=== PATIENT | female | born 1985 | race Caucasian/White ===

== ENCOUNTER 2020-07-31 00:36 | Outpatient (CLI) | payer BC, SELFPAY ==
[2020-07-31 17:26] LABS: SARS-CoV-2 RNA PCR Negative
== END 2020-07-31 00:37 | disposition home or self-care (01) ==
LOC: ANHCOVIDDT 00:36
PROVIDERS: Visit Provider Internal Medicine Gastroenterology
DX: Z01.812 Encounter for preprocedural laboratory examination (principal); Z20.828 Contact with and (suspected) exposure to other viral communicable diseases
CPT/HCPCS: 87635; C9803; U0003

== ENCOUNTER 2020-08-02 00:34 | Day surgery (SDC) | payer BC, SELFPAY ==
[2020-07-25 13:05] VITALS: BMI 31.1
--- NOTE | 2020-08-01 13:01 | WPDANESEPPF ---
Anes - Initial Pre Proc Eval Procedure: Operation Date: 08/02/20 08:30 Proposed Procedures p Screening Colonoscopy - Tom Santos MD Date/Time: 08/01/20 13:01 Surgeon: Tom Santos MD Pre Op Diagnosis: Family Hx Of Colon CA Patient Data Age: 35 Gender: F Height: 1.65 m Weight: 85 kg Allergies Allergy/AdvReac Type Severity Reaction Status Date / Time No Known Allergies Allergy Verified 08/02/20 07:35 Home Medications Medication Instructions Recorded Confirmed Type No Home Medications 07/25/20 08/02/20 History Patient hx anesthesia problems: none Family hx anesthesia problems: none [facility] Social History Social History Smoking status: Never smoker Alcohol intake: current Alcohol use details: Social Substance use: never Substance use type: does not use Living arrangements: with family Anes - Eval Final PreProcedure Day of Procedure 08/01/20 13:01 Patient weight: obese Heart: regular rate and rhythm Lungs: clear to auscultation and normal air movement Airway: Mallampati scale class II Neurological: alert and oriented Last oral intake: >/= 8 hours ASA classification: II Emergent: no Anesthetic plan: proceed Anesthesia type and monitoring: general GIVS and standard monitoring Informed Consent: The patient's anesthetic plan and its attendant risks and benefits were discussed with the patient/family/POA. Questions were solicited and answers provided to the satisfaction of the patient/family/POA.
[2020-08-02 07:37] VITALS: BP 119/76; PULSE 85; RESP 16; TEMP 36.3; O2SAT 98; BMI 30.7
--- NOTE | 2020-08-02 07:46 | P.HP_ITS ---
History of Present Illness History of Present Illness Consent: Risks, benefits, and alternatives have been discussed and questions answered. Patient agrees to proceed with procedure. Chief complaint: Family Hx Of Colon CA Narrative: Lily Chang is a 35 year old W female referred for screening colonoscopy secondary to a family history of colon cancer in a paternal aunt diagnosed in her 30s and a paternal grandfather diagnosed in his 60s. Her father has refused endoscopy in the past and she is not sure he has history of polyps. Patient is asymptomatic. She did have a colonoscopy 6 years ago which was normal. [facility] Social History Social History Smoking status: Never smoker Alcohol intake: current Alcohol use details: Social Substance use: never Substance use type: does not use Living arrangements: with family Meds Home Medications and Allergies Home Medications Medication Instructions Recorded Confirmed Type No Home Medications 07/25/20 08/02/20 History Allergies Allergy/AdvReac Type Severity Reaction Status Date / Time No Known Allergies Allergy Verified 08/02/20 07:35 Vital Signs Vital Signs - 24 hr 08/02/20 07:37 Temperature 36.3 C L Pulse Rate 85 Respiratory Rate 16 Blood Pressure 119/76 Pulse Oximetry 98 Exam Const: Orientation/consciousness: patient oriented x3 Resp: Auscultation: clear to auscultation bilaterally Cardio: Rate: regular rate Rhythm: regular rhythm Heart sounds: no murmurs GI: GI Palp: Yes Soft to palpation, No Tenderness to palpation present (GI), Yes No hepatosplenomegaly present and No Palpable mass present Auscultation: normal bowel sounds Neuro: General: patient oriented x3 and no focal motor deficits Extrem: General: no pedal edema Assessment and Plan Additional Plan Screening colonoscopy secondary to family history of colon cancer
[2020-08-02] MEDS: LACTATED RINGERS 1,000 ML 150 ML IV CONT (07:50)
[2020-08-02 09:00] VITALS: BP 102/58; PULSE 77; RESP 14; O2SAT 100
[2020-08-02 09:10] VITALS: BP 104/66; PULSE 66; RESP 14; O2SAT 100
[2020-08-02 09:20] VITALS: BP 106/58; PULSE 66; RESP 16; O2SAT 100
== END 2020-08-02 09:33 | disposition home or self-care (01) ==
PROVIDERS: PCP Family Medicine; Visit Provider Internal Medicine Gastroenterology
PROC: 0DJD8ZZ Inspection of Lower Intestinal Tract, Via Natural or Artificial Opening Endoscopic (ICD-10-PCS; CPT 45378; principal; 2020-08-02 08:30)
DX: Z12.11 Encounter for screening for malignant neoplasm of colon (principal); K63.5 Polyp of colon; Z80.0 Family history of malignant neoplasm of digestive organs; E66.9 Obesity, unspecified; Z68.30 Body mass index [BMI] 30.0-30.9, adult
CPT/HCPCS: 45385; 88305; J2704; J7120

== ENCOUNTER 2021-06-28 15:19 | Emergency (ER) | payer BC, SELFPAY ==
--- NOTE | 2021-06-28 15:20 | ED.SKABFB ---
HPI - Skin/Abscess/Foreign Bdy General Chief complaint: Skin/Abscess/Foreign Body Stated complaint: pos spider bite Time Seen by Provider: 06/28/21 15:20 Source: patient and RN notes reviewed History of Present Illness HPI narrative: Patient is a 36-year-old female who presents the urgent care with complaints of a spider bite to the left ankle. Patient states that she noticed it on Thursday. States that she did not see the spider bite her and is unaware of what insect it could have been. Patient states that she has been putting Benadryl cream to the area. States that it is slightly itchy at times but denies of any pain. Denies any fever, nausea, vomiting, lethargy, fatigue. Patient states that her and coworkers were telling her it was infected . No other acute complaints. No acute distress noted. Patient aware of the plan of care. Some parts of this dictation were generated by voice recognition software and may contain typographical and/or grammatical inaccuracies. Related Data Allergies Allergy/AdvReac Type Severity Reaction Status Date / Time No Known Allergies Allergy Verified 06/28/21 15:24 Review of Systems Review of Systems: CONSTITUTIONAL: Denies fever, chills, or sweats. EYES: Denies visual changes, redness, or discharge. ENT: Denies rhinorrhea, congestion, sore throat, or otalgia. CARDIOVASCULAR: Denies chest pain, palpitations, or edema. RESPIRATORY: Denies cough or dyspnea. GASTROINTESTINAL: Denies abdominal pain, nausea, vomiting, or diarrhea. GENITOURINARY: Denies dysuria or hematuria. SKIN: Reports of an insect bite to the left ankle MUSCULOSKELETAL: Denies back pain, joint pain, or myalgia. NEUROLOGIC: Denies headache, numbness, or weakness. All other systems reviewed are negative, except as documented in HPI. [facility] Past Medical History Medical History (Updated 06/28/21 @ 15:43 by TYLER Mcdonald) Abnormal colonoscopy 08.02.20: polyps. repeat in 5 years Social History Social History Smoking status: Never smoker Alcohol intake: current Alcohol use details: Social Substance use: never Substance use type: does not use Comments At the time of my signature, I reviewed and agree with the nursing past medical, surgical, social, and family history. There is no relevant family history pertinent to the patient complaint. Exam Narrative: GENERAL: This is a well-nourished, well-developed patient, in no apparent distress. HEAD: normocephalic, atraumatic. EYES: PERRL. Sclera clear/white. Vision is grossly intact. EARS: External ears normal NOSE: External nose normal with no obvious nasal discharge, nares without redness, no rhinorrhea. THROAT: Mucous membranes moist NECK: Neck supple CARDIOVASCULAR: Regular rate and rhythm without murmurs, gallops, or rubs. RESPIRATORY: Clear to auscultation. Breath sounds equal bilaterally. No wheezes, rales, or rhonchi. SKIN: 1 x 1 cm circular insect bite noted to the lateral aspect of the left malleolus without any signs or symptoms of cellulitis NEURO: awake, alert, and oriented to person, place and time. There were no obvious focal neurologic abnormalities. EXTREMITIES: No clubbing, cyanosis, or edema. Course Vital Signs Vital signs: Vital Signs Temperature 98.5 F 06/28/21 15:30 Pulse Rate 86 06/28/21 15:30 Respiratory Rate 16 06/28/21 15:30 Blood Pressure 127/80 06/28/21 15:30 Pulse Oximetry 100 06/28/21 15:30 Temperature 98.5 F 06/28/21 15:32 Pulse Rate 86 06/28/21 15:32 Respiratory Rate 16 06/28/21 15:32 Blood Pressure 127/80 06/28/21 15:32 Pulse Oximetry 100 06/28/21 15:32 Reviewed MDM - Skin/Abscess/Foreign Bdy MDM Narrative Medical decision making narrative: Advised the patient that she may continue an [id number]-[id number] antihistamine such as Benadryl/Claritin or Zyrtec as needed for itching. May continue Benadryl spray/cream as need
[2021-06-28 15:30] VITALS: BP 127/80; PULSE 86; RESP 16; TEMP 36.9; O2SAT 100
[2021-06-28 15:32] VITALS: BP 127/80; PULSE 86; RESP 16; TEMP 36.9; O2SAT 100
== END 2021-06-28 15:52 | disposition home or self-care (01) ==
PROVIDERS: Emergency Provider Nurse Practitioner Family; PCP Family Medicine
DX: S90.562A Insect bite (nonvenomous), left ankle, initial encounter (principal); W57.XXXA Bitten or stung by nonvenomous insect and other nonvenomous arthropods, initial encounter
CPT/HCPCS: 99213; G0463

== ENCOUNTER 2022-03-14 06:53 | Outpatient (CLI) | payer BC, SELFPAY ==
[2022-03-14 07:34] LABS: Basophils Percent Auto 0.7 % (0.2-1.2); Eosinophils Absolute Auto 0.1 K/mm3 (0-0.3); Eosinophils Percent Auto 2.4 % (0-4.4); Hematocrit 39.9 % (37.0-47.0); Hemoglobin 13.5 g/dL (12.0-15.0); Immature Granulocyte Absolute 0.02 K/mm3 (0.00-0.031); Immature Granulocyte Percent A 0.3 % (0-0.5); Lymphocytes Absolute Auto 1.52 K/mm3 (0.9-3.2); Lymphocytes Percent Auto 25.7 % (18.3-44.2); Mean Corpuscular HGB Conc 33.8 g/dl (32-36); Mean Corpuscular Hemoglobin 30.7 pg (26-34); Mean Corpuscular Volume 90.7 fl (80-100); Mean Platelet Volume 10.4 fl (7.4-10.4); Monocytes Absolute Auto 0.3 K/mm3 (0.1-0.6); Monocytes Percent Auto 5.6 % (2.6-8.5); Neutrophils Absolute Auto 3.9 K/mm3 (1.3-6.7); Neutrophils Percent Auto 65.3 % (45.5-73.1); Platelet Count Result 244 k/mm3 (150-375); Red Cell Distribution Width 12.7 % (11.5-14.5); White Blood Count 5.9 K/mm3 (4.5-10.0)
[2022-03-14 08:18] LABS: Free T4 Free Thyroxine 1.01 ng/mL (0.78-2.19)
[2022-03-21 00:11] LABS: Estradiol, Ultrasensitive 404 pg/mL
[2022-03-23 07:44] LABS: FSH <0.7 mIU/mL (***); Prolactin 11.8 ng/mL (***)
== END 2022-03-14 06:54 | disposition home or self-care (01) ==
LOC: ANHLAB 06:55
PROVIDERS: PCP Family Medicine; Visit Provider Obstetrics & Gynecology
DX: N93.9 Abnormal uterine and vaginal bleeding, unspecified (principal)
CPT/HCPCS: 36415; 82670; 83001; 84146; 84439; 84443; 84702; 85025

== ENCOUNTER 2022-03-21 06:46 | Outpatient (CLI) | payer BC, SELFPAY | END 2022-03-21 06:47 | disposition home or self-care (01) | LOC: ANHLAB 06:48 | PROVIDERS: PCP Family Medicine; Visit Provider Obstetrics & Gynecology | DX: N92.6 Irregular menstruation, unspecified (principal) | CPT/HCPCS: 36415; 84702 ==

== ENCOUNTER 2022-04-11 11:45 | Outpatient (CLI) | payer BC, SELFPAY ==
--- NOTE | ~2022-04-11 | MMUS_ITS ---
EXAMINATION: MM diagnostic trisha RT w abel, US breast RT limited HISTORY: 6:00 skin lesion TECHNIQUE: ML and MLO and CC 3-D tomosynthesis images of the right breast were performed and syntheti c 2-D images were generated. CAD analysis was submitted and interpreted. High resolution targeted rig ht breast ultrasound at 6:00 was performed. COMPARISON: None BREAST PARENCHYMAL COMPOSITION: The breasts are heterogeneously dense, which may obscure small masses . FINDINGS: MAMMOGRAPHIC FINDINGS: No suspicious mass or architectural distortion, malignant calcification, skin thickening or retractio n is detected. There is no evidence of underlying mammographic abnormal finding at the area of clinical complaint at 6:00 skin lesion. ULTRASOUND: There is a subcutaneous parallel circumscribed hypoechoic area measuring up to 5.5 x 6.4 mm dimension at the area of clinical complaint at 6:00 near the areola. The lesion is entirely within the subcuta neous tissues, not involving fibroglandular breast tissue. No significant underlying breast sonographic abnormality is noted IMPRESSION: 1. 6:00 approximately 5.5 x 6.4 mm subcutaneous skin lesion, not involving fibroglandular breast tiss ue; no underlying mammographic or sonographic abnormality 2. Consider skin punch biopsy. BI-RADS Category 2: Benign finding(s). Reviewed, dictated and finalized at location A. IMPRESSION: 1. 6:00 approximately 5.5 x 6.4 mm subcutaneous skin lesion, not involving fibr oglandular breast tissue; no underlying mammographic or sonographic abnormality 2. Consider skin punch biopsy. BI-RADS Category 2: Benign finding(s).
== END 2022-04-11 11:46 | disposition home or self-care (01) ==
PROVIDERS: PCP Family Medicine; Visit Provider Surgery
DX: N64.9 Disorder of breast, unspecified (principal)
CPT/HCPCS: 76642; 77061; 77065; G0279

== ENCOUNTER 2022-04-11 13:54 | Outpatient (CLI) | payer BC, SELFPAY ==
--- NOTE | ~2022-04-11 | US_ITS ---
EXAMINATION: US OB <=14 wk fetus w TV DATE: 04/11/2022 16:48 INDICATION: Gestational dating. TECHNIQUE: Real-time transabdominal obstetric ultrasound. FINDINGS: No prior studies for comparison. The uterus measures 12.8 x 8.1 x 6.8 cm. There is an intrauterine gestational sac, with pole id entified. The crown rump length measures 2.96 cm, which correlates with a estimated gestational age of 9 weeks 6 days. heart tones are identified measuring 171 BPM right ovary is unremarkable. Left ovary is not visualized.. IMPRESSION: 1. SL IUP with an EGA of 9 weeks, 6 days (EDC by current ultrasound of 11/08/2022). Reviewed, dictated and finalized at location A. IMPRESSION: 1. SL IUP with an EGA of 9 weeks, 6 days (EDC by current ultrasound of 11/08/20 22).
== END 2022-04-11 13:55 | disposition home or self-care (01) ==
PROVIDERS: PCP Family Medicine; Visit Provider Obstetrics & Gynecology
DX: Z36.87 Encounter for antenatal screening for uncertain dates (principal); Z3A.09 9 weeks gestation of pregnancy
CPT/HCPCS: 76801; 76817

== ENCOUNTER 2022-11-06 06:05 | Inpatient (IN) | payer BC, SELFPAY ==
[2022-11-06] VITALS (70 sets, daily range): BP systolic 77–202; BP diastolic 50–166; PULSE 67–277; RESP 18; TEMP 36.2–36.7; O2SAT 98–100; BMI 31.4
[2022-11-06 06:47] LABS: Basophils Percent Auto 0.5 % (0.2-1.2); Eosinophils Absolute Auto 0.1 K/mm3 (0-0.3); Hematocrit 33.9 % (37.0-47.0); Hemoglobin 11.5 g/dL (12.0-15.0); Immature Granulocyte Absolute 0.03 K/mm3 (0.00-0.031); Immature Granulocyte Percent A 0.5 % (0-0.5); Lymphocytes Absolute Auto 1.23 K/mm3 (0.9-3.2); Lymphocytes Percent Auto 19.9 % (18.3-44.2); Mean Corpuscular HGB Conc 33.9 g/dl (32-36); Mean Corpuscular Hemoglobin 31.5 pg (26-34); Mean Corpuscular Volume 92.9 fl (80-100); Mean Platelet Volume 10.7 fl (7.4-10.4); Monocytes Absolute Auto 0.4 K/mm3 (0.1-0.6); Monocytes Percent Auto 5.7 % (2.6-8.5); Neutrophils Absolute Auto 4.5 K/mm3 (1.3-6.7); Neutrophils Percent Auto 72.4 % (45.5-73.1); Platelet Count Result 197 k/mm3 (150-375); Red Blood Count 3.65 M/mm3 (4.2-5.4); Red Cell Distribution Width 13.5 % (11.5-14.5); White Blood Count 6.2 K/mm3 (4.5-10.0)
[2022-11-06] MEDS: AMPICILLIN 2 GM/NS 100 ML 2 GM/100 ML BAG IVPB (06:54)
[2022-11-06] MEDS: LACTATED RINGERS 1,000 ML 125 ML IV CONT (06:55)
--- NOTE | 2022-11-06 07:08 | LDADM ---
This patient, Lily Chang, was admitted to Labor/Delivery/Recovery 103 on 11/06/22 at 06:05. Plans for labor, pain management and were discussed with patient. Patient/family oriented to hospital policies and general routines including ID bracelet, bed and alarms, visiting hours, pain management, procedures, bathroom and other care routines, personal items, smoking policy, room service/diet and guest tray routines, security routines, and visiting hours. Patient/Family are encouraged to report perceived risks to care and to ask questions if they do not understand what they are told or what they should do. See OBIX for further documentation.
[2022-11-06 07:41] LABS: HIV 1/2 Ab P24 Ag Result Negative (Negative)
[2022-11-06] MEDS: OXYTOCIN 30 UNITS/NS 500 ML 30 UNITS/500 ML BAG IV CONT (08:19)
[2022-11-06] MEDS: LACTATED RINGERS 1,000 ML 999 ML IV CONT (09:34)
--- NOTE | 2022-11-06 10:00 | WPDHPUPDATE1 ---
History and Physical Update Update Date/Time: 11/06/22 10:00 History and Physical has been reviewed, including an updated exam of the patient. There are NO changes in the patient's condition. Risks, benefits, and alternatives have been discussed and questions answered. Patient agrees to proceed with procedure.
--- NOTE | 2022-11-06 10:00 | WPDANESEPP ---
Anes - Eval Pre Procedure Procedure: Labor Epidural Date/Time: 11/06/22 10:00 Surgeon: Dr. Lang Preop Diagnosis: Pain during labor Pre Op Diagnosis: IOL Patient Data Age: 37 Gender: F Height: 1.65 m Weight: 85.5 kg Last Vital Signs Temp 36.6 C 11/06/22 07:00 Pulse 84 11/06/22 09:45 BP 130/71 11/06/22 09:45 Allergies Allergy/AdvReac Type Severity Reaction Status Date / Time No Known Allergies Allergy Verified 10/30/22 10:45 Home Medications Medication Instructions Recorded Confirmed Type prenat.vits,gisselle,oln-fypk-xsfbg 1 tablet PO DAILY 03/24/22 11/06/22 History aspirin 81 mg tablet,delayed 81 mg PO DAILY #90 tabs 05/07/22 11/06/22 Rx release (Adult Aspirin Regimen) Laboratory Tests 11/06/22 11/06/22 11/06/22 06:39 06:39 06:39 WBC 6.2 K/mm3 K/mm3 (4.5-10.0) RBC 3.65 M/mm3 L M/mm3 (4.2-5.4) Hgb 11.5 g/dL L g/dL (12.0-15.0) Hct 33.9 % L % (37.0-47.0) MCV 92.9 fl fl (80-100) MCH 31.5 pg pg (26-34) MCHC 33.9 g/dl g/dl (32-36) RDW 13.5 % % (11.5-14.5) Plt Count 197 k/mm3 k/mm3 (150-375) MPV 10.7 fl H fl (7.4-10.4) Immature Gran % (Auto) 0.5 % % (0-0.5) Neut % (Auto) 72.4 % % (45.5-73.1) Lymph % (Auto) 19.9 % % (18.3-44.2) [place] % (Auto) 5.7 % % (2.6-8.5) Eos % (Auto) 1.0 % % (0-4.4) Baso % (Auto) 0.5 % % (0.2-1.2) Lymph # (Auto) 1.23 K/mm3 K/mm3 (0.9-3.2) [place] # (Auto) 0.4 K/mm3 K/mm3 (0.1-0.6) Eos # (Auto) 0.1 K/mm3 K/mm3 (0-0.3) Baso # (Auto) 0.0 K/mm3 K/mm3 (0.0-0.1) Abs Immat Gran (auto) 0.03 K/mm3 K/mm3 (0.00-0.031) Absolute Neuts (auto) 4.5 K/mm3 K/mm3 (1.3-6.7) Absolute Nucleated RBC 0.0 K/mm3 K/mm3 (0.0-0.012) Nucleated RBC % 0.0 % % (0.0-0.2) RPR Pending HIV 1&2 Ab/P24 Ag 4thGn Negative (Negative) Blood Type Antibody Screen 11/06/22 06:39 WBC RBC Hgb Hct MCV MCH MCHC RDW Plt Count MPV Immature Gran % (Auto) Neut % (Auto) Lymph % (Auto) [place] % (Auto) Eos % (Auto) Baso % (Auto) Lymph # (Auto) [place] # (Auto) Eos # (Auto) Baso # (Auto) Abs Immat Gran (auto) Absolute Neuts (auto) Absolute Nucleated RBC Nucleated RBC % RPR HIV 1&2 Ab/P24 Ag 4thGn Blood Type A Positive Antibody Screen Negative Patient hx anesthesia problems: none Family hx anesthesia problems: none Results Review: All pre-operative results and documents have been reviewed as part of the pre-operative evaluation. [facility] Past Medical History Medical History Abnormal colonoscopy 9.17.20: polyps. repeat in 5 years Blood glucose abnormal Family History Family History Father Hypertension Mother Hypertension Hypothyroidism Grandparent Hypertension Grandparent Diabetes mellitus Grandparent Cancer Social History Social History Smoking status: Never smoker Second hand tobacco smoke exposure: No Alcohol intake: never Alcohol use details: Social Substance use: never Substance use type: does not use Lack of Transportation: No Lack of Food: Never True Current Housing: I Have Housing Concerned About Future Housing: No Difficulty Paying Gas/Electric Bills: No Difficulty Paying for Meds: No Currently Unemployed: No Education: Bachelor's Degree Difficulty w/ Childcare or Family Care: No Additional occupation/education comments: swimming coach at [employer] concerns: N
--- NOTE | 2022-11-06 10:00 | WPDOBADMIT ---
Obstetrics - Admit Note Admission Note: record reviewed. No pertinent additions to the history and/or any subsequent changes in the physical findings that are not consistent with the expected course of the were found. Additions to the history and/or subsequent changes in the physical findings follow. None.
[2022-11-06] MEDS: AMPICILLIN 1 GM/NS 50 ML 1 GM/50 ML BAG IVPB (11:07)
--- NOTE | 2022-11-06 11:54 | P.PCNOB_ITS ---
OB - Delivery Note Procedure Events: Other (AMA) Induction method: AROM and Per Pitocin Protocol Delivery monitor: External FHT and External Uterine Route of delivery: Episiotomy description: None Laceration Description: None Specimen: No Quantitative Blood Loss (ml): 200 Anesthesia type: Epidural Disposition: Floor Complications: None Narrative: patient was prepped and draped usual manner this procedure. Maternal expulsive efforts readily delivered vertex with nuchal cord noted. With continued pushing rest baby was delivered without difficulty. The cord was clamped and cut and the placenta delivered spontaneously. Cervix vagina and vulva were inspected with no significant lacerations tears or bleeding. Uterus was well contracted. At this point the procedure was considered terminated with immediate postoperative condition of mother and baby both excellent. [place] Baby Weeks of gestation at delivery: 39 Infant gender: Male Weight (pounds): 7 Weight (ounces): 5 presentation: vertex Placenta delivery description: Spontaneous Cord Vessel Description: 3 Vessels and Nuchal Cord score one minute: 8 score five minutes: 8 AMG Delivery Billing Delivery Delivery: Delivery Charge
[2022-11-06] MEDS: OXYTOCIN 30 UNITS/NS 500 ML 30 UNITS/500 ML BAG 125 UNITS IV CONT (12:56)
--- NOTE | 2022-11-06 15:03 | PC.NURSE ---
Patient transferred to post room #279 via wheelchair. Support person present. Oriented to unit, room, information board, rooming in, admission packet and security measures. Patient verbalizes understanding.
[2022-11-07 00:45] VITALS: BP 130/87; PULSE 79; RESP 18; TEMP 36.9
[2022-11-07 04:45] VITALS: BP 115/61; PULSE 77; RESP 18; TEMP 37
[2022-11-07] MEDS: IBUPROFEN 600 MG TABLET PO ×2 (04:45→14:37)
[2022-11-07 05:30] LABS: Hematocrit 36.2 % (37.0-47.0); Hemoglobin 12.3 g/dL (12.0-15.0)
--- NOTE | 2022-11-07 07:28 | WPDANLDPN2 ---
Anes-Prog Note L&D Date/Time: 11/07/22 07:28 Neuro status: Neuro function grossly intact. Vital Signs: Last Vital Signs Temp 37.0 C 11/07/22 04:45 Pulse 77 11/07/22 04:45 Resp 18 11/07/22 04:45 BP 115/61 11/07/22 04:45 Pulse Ox 100 11/06/22 15:05 O2 Del Method Room Air 11/06/22 15:20 Pain score (VAS): 0 I/O: Intake & Output 11/06/22 11/06/22 11/07/22 15:59 23:59 07:59 Intake Total 2350 240 Output Total 1000 Balance 1350 240 Patient feedback: Patient satisfied with anesthetic care.
[2022-11-07 07:45] VITALS: BP 115/74; PULSE 85; RESP 18; TEMP 37; O2SAT 98
--- NOTE | 2022-11-07 08:22 | PM.OBDSVD ---
DS: Admitting Diagnosis Discharge Date 11/07/2022 Admitting Diagnosis OB - DS: Summary OB Procedures : None OB Procedures Intrapartum: Spontaneous Vag Delivery OB Procedures: : None Time Spent with Patient Time attestation: Total time spent providing and/or coordinating discharge services: DS: Data Data Completed and Pending Labs on day of discharge: Labs from last 24 hours 11/07/22 04:42 Hgb 12.3 Hct 36.2 L Discharge Plan Discharge Discharging Clinician: Aguila Garcia Patient Disposition: Home, Self-Care Activity: as tolerated Diet: as tolerated Patient Instructions: Antibiotic Form Stand Alone Forms: General Discharge Information Follow-up/Referrals: Mercedes Lang MD [Physician] - 3 Weeks Discharge Medications: New ibuprofen 600 mg Tablet 600 mg PO Q6H PRN (Reason: Cramping) Qty: 30 0RF Continued prenat.vits,gisselle,qpf-kgwl-svnra Tablet 1 tablet PO DAILY Discontinued aspirin [Adult Aspirin Regimen] 81 mg tablet,delayed release (DR/EC) 81 mg PO DAILY Qty: 90 3RF Date of admission: 11/06/22 06:05 Primary Care Provider: Trinidad,Kristen Wisdom Admitting Provider: Mercedes Lang Attending physician on admission: Mercedes Lagn Condition: Stable
[2022-11-07] MEDS: DOCUSATE SODIUM 100 MG CAPSULE PO (09:00)
[2022-11-07] MEDS: MULTIVIT/MIN/PREN/FOL AC/IRON TABLET 1 TAB PO (12:27)
[2022-11-07 14:45] LABS: Rapid Plasma Reagin Non-Reactive (NonReactive)
[2022-11-07 20:20] VITALS: BP 130/65; PULSE 78; RESP 18; TEMP 36.7
[2022-11-08 09:10] VITALS: BP 129/71; PULSE 87; RESP 18; TEMP 36.9
[2022-11-08] MEDS: IBUPROFEN 600 MG TABLET PO (09:24)
[2022-11-08] MEDS: MULTIVIT/MIN/PREN/FOL AC/IRON TABLET 1 TAB PO (09:24)
[2022-11-10 07:45] VITALS: BP 117/72; PULSE 93; RESP 20; TEMP 36.9; O2SAT 98
== END 2022-11-08 12:15 | disposition home or self-care (01) | DRG 807 ==
LOC: ANHOB2 11-08 08:56 → ANHLDR 11-11 10:03 → ANHOB2 11-11 10:03
PROVIDERS: Admitting Provider Obstetrics & Gynecology; PCP Family Medicine; Visit Provider Obstetrics & Gynecology
DX: O69.81X0 Labor and delivery complicated by cord around neck, without compression, not applicable or unspecified (principal); Z37.0 Single live birth; O99.824 Streptococcus B carrier state complicating childbirth; O76 Abnormality in fetal heart rate and rhythm complicating labor and delivery; Z3A.39 39 weeks gestation of pregnancy
CPT/HCPCS: 36415; 85014; 85018; 85025; 86592; 86703; 86850; 86900; 86901; A9270; G0432; J0290; J2590; J2795; J7120

== ENCOUNTER 2022-11-18 10:58 | Outpatient (RCR) | payer SELFPAY ==
--- NOTE | 2022-11-18 15:56 | PC.NURSE ---
In- 8 Out- 1247 Mother wanted to work on alone in the room to see if relaxing would bring in more milk as she states her milk is dripping at home . Mother was given a snack and encouragement to practice the techniques and tips of latching her effectively. From [id number] mother worked on her own and the plan was to weigh her again after the breastfeed. At this point we had also discussed the lack of good transfer of milk from mom to infant. Reason for visit: Latch issues History: Mother delivered a male baby 11/06. She has a history of a lumpectomy to her right breast at the 6 o'clock position. She was treated for GBS positive status twice during her labor that was 4 hrs and 58 minutes from start to delivery with no difficulties charted. History: Infant was delivered vaginally with apgars of 8/8, terminal meconium, forking tongue (11/13 frenulectomy was performed in the office), nuchal cord X1 and supplemented in the hospital with formula bottle related to low blood sugar results. Observations: Mother works well with her infant. Infant opens his mouth wide and quickly reduces mouth opening and draws his tongue up when he feels mothers nipple. Mother's body language reacts to the latching as if it is painful especially to the left breast related to the nipple being cracked and open. The right breast the nipple was misshaped using cross cradle or football positioning. RN repositioned infant tummy to tummy with ear, shoulder and hip in alignment bringing infant close into mother's body with an asymmetrical latch chin buried into the breast to assist with a deeper latch. Visually there is chomping like motion. Occasionally, would swallow with a 3:1 ratio for a few suck, then either need to be stimulated to drink or would suck/swallow with a 5:1 or 8:1 drink. With assessment the RN could feel the infant lift the middle of his tongue up to the roof of his mouth almost immediately which could possibly be hindering the nipple to optimally sit in the soft palate for . A call was made to Dr. Buck and it was discussed the possibility of the dyad going to see a pediatric OT/ST for retraining. Contact information was given to mother so she can make her choice. Mother states my breast drips with milk at home so thinking mother would relax and have better success privately in the room alone, she was given a snack because she was hungry and was alone with her infant for 81 minutes. The duration of feeding was 60 minutes for a 30-40 minute feeding. Two void diapers and one yellow/seedy stool diaper was changed while visiting the hospital. weight: 3317g Lowest weight: 3030g Last weight: 7-2 (11/14 in the office) Pre-feed weight:3245g Post-feed weight: 3267g after the second session the weight was 3287g Plan of Care: Mother was given formula bottles to feed her until her milk supply is adequate and/or when infant transfers milk well on his own. Mother will initiate pumping after practicing to stimulate milk production or to collect an appropriate amount of milk to meet the infant's growing needs. Mother was given resources concerning how to eat well, hydrate, breastfeed, rest and pump to stimulate more milk production. Follow up plans: Dr. Buck's office was called and report was given to nurse Barney. The office will call and follow-up with the patient on . Mother will be also visiting [facility] on as well. Mother is encouraged to reach out to , [facility] or [facility] if she has any further questions or concerns.
== END 2023-02-16 23:59 | disposition home or self-care (01) ==
LOC: ANHOBOP 10:58
PROVIDERS: PCP Family Medicine; Visit Provider Pediatrics
DX: Z39.1 Encounter for care and examination of lactating mother (principal)
CPT/HCPCS: 99214; G0463